=== PATIENT | female | born 1965 | race Caucasian/White ===

== ENCOUNTER 2017-03-11 08:25 | Emergency (ER) | payer BC, OTHER ==
[~2017-03-11] VITALS: Ht 170.2 cm; Wt 80.3 kg
[~2017-03-11 08:25] MED LIST: AMT10 PO; FLX10 PO; LRT5 PO; OXYC-57 PO
[2017-03-11 08:29] VITALS: TEMP 36.5; Ht 170.2 cm; Wt 80.3 kg
[2017-03-11] MEDS ORDERED: MoRPHine SULFATE 10 MG/ML CARP/VIAL IV STA (08:54)
[2017-03-11] MEDS ORDERED: SODIUM CHLORIDE 0.9% 1000ML 1,000 ML IV STA (08:54)
[2017-03-11] MEDS ORDERED: KETOROLAC TROMETHAMINE 30 MG/ML VIAL IV STA (08:54)
[2017-03-11] MEDS ORDERED: ONDANSETRON INJ 2 MG/ML 2 ML VIAL IV STA (08:54)
[2017-03-11 09:08] LABS: BASO % 0.2 %; BASO ABS # 0.02 K/uL (0-0.2); COMPLETE YES; EOS % 1.4 %; HEMATOCRIT 41.2 % (37-47); IG% 0.1 %; LYMPH % 28.1 %; LYMPH ABS # 2.27 K/uL (1.2-3.4); MEAN CELL VOLUME 88.8 fL (80-100); MEAN CORPUSCULAR HEMOGLOBIN 30.8 pg (25-34); MEAN CORPUSCULAR HGB CONC 34.7 g/dl (32-36); MEAN PLATELET VOLUME 10.2 fL (7.4-10.4); MONO % 5.1 %; NEUT % 65.1 %; PLATELET COUNT 251 K/uL (130-400); RED BLOOD COUNT 4.64 M/uL (4.2-5.4); WHITE BLOOD COUNT 8.07 K/uL (4.8-10.8)
[2017-03-11 09:24] LABS: ALT/SGPT 24 U/L (12-78); BLOOD UREA NITROGEN 10 mg/dl (7-18); BUN/CREATININE RATIO 11.3 (10-20); CALCIUM 8.9 mg/dl (8.5-10.1); CARBON DIOXIDE 23 mmol/L (21-32); CHLORIDE 107 mmol/L (98-107); CREATININE 0.91 mg/dl (0.60-1.20); GLUCOSE 89 mg/dl (70-99); POTASSIUM 3.7 mmol/L (3.5-5.1); SODIUM 140 mmol/L (136-145)
[2017-03-11 09:27] LABS: ALKALINE PHOSPHATASE 64 U/L (45-117); AST/SGOT 17 U/L (15-37)
--- NOTE | 2017-03-11 09:51 | DIAGNOSTIC IMAGING REPORT ---
ABDOMEN AND PELVIS CT WITHOUT CONTRAST CT DOSE: 1275.73 mGy.cm HISTORY: Flank pain right flank pain TECHNIQUE: Multiaxial CT images of the abdomen and pelvis were performed without the use of intravenous and oral contrast according to the standard department stone protocol. COMPARISON STUDY: 12/13/2007 FINDINGS: Lung bases are clear. Liver spleen and pancreas are unremarkable. Gallstones are present within the gallbladder lumen. Kidneys negative for calcification or hydronephrosis. Bowel pattern is nonobstructive. The appendix is normal. Uterus is bulky suggesting fibroid involvement. Bladder is midline. There is no evidence for ovarian enlargement. IMPRESSION: 1. No evidence for an obstructing urinary tract calculus. 2. Normal appendix. 3. Nonobstructive bowel pattern. 4. Gallstones. 5. Fibroid uterus. Electronically signed by: Michele Cisneros M.D. 03/11/2017 9:49 AM Dictated Date/Time: 03/11/2017 9:44 AM
[2017-03-11] MEDS ORDERED: CYCL5TAB PO (09:56)
[2017-03-11] MEDS ORDERED: AMT50 PO (09:56)
[2017-03-11] MEDS ORDERED: NAPR1TAB9 PO (09:56)
[2017-03-11 10:45] LABS: URINE APPEARANCE CLEAR (CLEAR); URINE BILIRUBIN NEG (NEG); URINE COLOR YELLOW; URINE NITRITE NEG (NEG); URINE PH 7.5 (4.5-7.5); URINE SPECIFIC GRAVITY 1.008 (1.000-1.030); UROBILINOGEN NEG (NEG); ZZUR CULT IF INDIC CLEAN CATCH NO
[2017-03-11 10:49] LABS: MANUAL MICROSCOPIC REQUIRED? NO; REVIEW REQ? NO
[2017-03-11] MEDS ORDERED: CYCL10TA6 PO (11:10)
[2017-03-11] MEDS ORDERED: HYDR-5688 PO (11:10)
--- NOTE | 2017-03-11 11:10 | EMERGENCY ROOM VISIT NOTE ---
History First contact with patient: 08:34 Chief Complaint: BACK PAIN Stated Complaint: RIGHT LOWER BACK PAIN History of Present Illness The patient is a 51 year old female who presents to the Emergency Room with complaints of right-sided low back pain for one week. She states over the past 2-1/2 days the pain has been constant and rates it at a 10 out of 10. The patient denies any nausea or vomiting. The patient denies any known injury to her back. The patient states that it hurts in her kidney region when she urinates but denies any dysuria, frequency, urgency or hematuria. The patient denies any history of kidney stones. Patient states she had a normal bowel movement this morning. The patient denies any hematochezia or melena. The patient states that she had a muscle relaxer that she had at home from a prior muscle injury which he took this morning without any relief. The patient states that she has not been eating or drinking very much. She has been taking ibuprofen and Aleve without any relief. Review of Systems 10 system review was performed and was negative unless stated otherwise history of present illness. Past Medical/Surgical History , tonsillectomy Social History Smoking Status: Never Smoker Smokeless Tobacco Use: No Alcohol Use: none Drug Use: none Marital Status: Housing Status: lives with family Occupation Status: employed Current/Historical Medications Scheduled PRN Cyclobenzaprine Hcl (Flexeril), 1 TAB PO HS PRN for Muscle Spasms Miscellaneous Medications Amitriptyline Hcl (Elavil), 50 MG PO Naproxen (Aleve), 220 MG PO Allergies Coded Allergies: Rofecoxib (Verified Allergy, Intermediate, RASH, 03/11/17) Sulfa Drugs (Verified Allergy, Intermediate, RASH, 03/11/17) Physical Exam Vital Signs Date Time Temp Pulse Resp B/P (MAP) Pulse Ox O2 Delivery O2 Flow Rate FiO2 03/11/17 09:54 74 16 114/69 100 Room Air 03/11/17 08:29 36.5 87 18 126/71 97 Room Air Physical Exam GENERAL: 51-year-old white female appears uncomfortable secondary to pain. MENTAL Status: Alert and oriented 3. EYES: No icterus noted MOUTH: Mucosa is moist NECK: Supple, no lymphadenopathy noted. No carotid bruits noted. LUNGS: Clear auscultation without wheezes rales or rhonchi. CARDIAC: Regular rate and rhythm without murmur. Pulses is full and equal throughout. BACK: No CVA tenderness noted. ABDOMEN: Positive bowel sounds all 4 quadrants. Soft, nontender to palpation without organomegaly or masses. LUMBAR SPINE: No gross bony deformity noted. The patient is nontender to palpation over the spinous processes she has tenderness palpation over the right lower paravertebral region otherwise nontender. Full range of motion. The patient is able to heel and toe walk without difficulty. Negative straight leg raise bilaterally. Bilateral patellar and Achilles reflexes are 2+. EXTREMITIES: No cyanosis or edema noted. Medical Decision & Procedures ER Provider Diagnostic Interpretation: ABDOMEN AND PELVIS CT WITHOUT CONTRAST CT DOSE: 1275.73 mGy.cm HISTORY: Flank pain right flank pain TECHNIQUE: Multiaxial CT images of the abdomen and pelvis were performed without the use of intravenous and oral contrast according to the standard department stone protocol. COMPARISON STUDY: 12/13/2007 FINDINGS: Lung bases are clear. Liver spleen and pancreas are unremarkable. Gallstones are present within the gallbladder lumen. Kidneys negative for calcification or hydronephrosis. Bowel pattern is nonobstructive. The appendix is normal. Uterus is bulky suggesting fibroid involvement. Bladder is midline. There is no evidence for ovarian enlargement. IMPRESSION: 1. No evidence for an obstructing urinary tract calculus. 2. Normal appendix. 3. Nonobstructive bowel pattern. 4. Gallstones. 5. Fibroid uterus. Electronically signed by: Michele Cisneros M.D. 03/11/2017 9:49 AM Dictated Date/Time: 03/11/2017 9:44 AM Laboratory Results 03/11/17 08:55 Red Blood Count 4.64, Mean Corpuscular Volume 88.8, Mean Corpuscular Hemoglobin 30.8, Mean Corpuscular Hemoglobin Concent 34.7, Mean Platelet Volume 10.2, Neutrophils (%) (Auto) 65.1, Lymphocytes (%) (Auto) 28.1, Monocytes (%) (Auto) 5.1, Eosinophils (%) (Auto) 1.4, Basophils (%) (Auto) 0.2, Neutrophils # (Auto) 5.25, Lymphocytes # (Auto) 2.27, Monocytes # (Auto) 0.41, Eosinophils # (Auto) 0.11, Basophils # (Auto) 0.02 03/11/17 08:55 Test 6/26/17 08:55 03/11/17 10:20 White Blood Count 8.07 K/uL (4.8-10.8) Red Blood Count 4.64 M/uL (4.2-5.4) Hemoglobin 14.3 g/dL (12.0-16.0) Hematocrit 41.2 % (37-47) Mean Corpuscular Volume 88.8 fL (80-100) Mean Corpuscular Hemoglobin 30.8 pg (25-34) Mean Corpuscular Hemoglobin Concent 34.7 g/dl (32-36) Platelet Count 251 K/uL (130-400) Mean Platelet Volume 10.2 fL (7.4-10.4) Neutrophils (%) (Auto) 65.1 % Lymphocytes (%) (Auto) 28.1 % Monocytes (%) (Auto) 5.1 % Eosinophils (%) (Auto) 1.4 % Basophils (%) (Auto) 0.2 % Neutrophils # (Auto) 5.25 K/uL (1.4-6.5) Lymphocytes # (Auto) 2.27 K/uL (1.2-3.4) Monocytes # (Auto) 0.41 K/uL (0.11-0.59) Eosinophils # (Auto) 0.11 K/uL (0-0.5) Basophils # (Auto) 0.02 K/uL (0-0.2) RDW Standard Deviation 39.6 fL (36.4-46.3) RDW Coefficient of Variation 12.3 % (11.5-14.5) Immature Granulocyte % (Auto) 0.1 % Immature Granulocyte # (Auto) 0.01 K/uL (0.00-0.02) Anion Gap 10.0 mmol/L (3-11) Est Creatinine Clear Calc Drug Dose 81.6 ml/min Estimated GFR () 85.9 Estimated GFR (Non- 74.1 BUN/Creatinine Ratio 11.3 (10-20) Calcium Level 8.9 mg/dl (8.5-10.1) Total Bilirubin 0.4 mg/dl (0.2-1) Direct Bilirubin < 0.1 mg/dl (0-0.2) Aspartate Amino Transf (AST/SGOT) 17 U/L (15-37) Alanine Aminotransferase (ALT/SGPT) 24 U/L (12-78) Alkaline Phosphatase 64 U/L (45-117) Total Protein 7.5 gm/dl (6.4-8.2) Albumin 4.0 gm/dl (3.4-5.0) Lipase 105 U/L (73-393) Urine Color YELLOW Urine Appearance CLEAR (CLEAR) Urine pH 7.5 (4.5-7.5) Urine Specific [place] 1.008 (1.000-1.030) Urine Protein NEG (NEG) Urine Glucose (UA) NEG (NEG) Urine Ketones NEG (NEG) Urine Occult Blood NEG (NEG) Urine Nitrite NEG (NEG) Urine Bilirubin NEG (NEG) Urine Urobilinogen NEG (NEG) Urine Leukocyte Esterase NEG (NEG) Medications Administered Medications (Trade) Dose Ordered Sig/Елена Route Start Time Stop Time Status Last Admin Dose Admin Sodium Chloride 1,000 ml @ 999 mls/hr Q1H1M STAT IV 03/11/17 08:54 03/11/17 09:54 DC 03/11/17 09:07 999 MLS/HR Ketorolac Tromethamine (Toradol Inj) 30 mg NOW STAT IV 03/11/17 08:54 03/11/17 08:57 DC 03/11/17 09:06 30 MG Ondansetron HCl (Zofran Inj) 4 mg NOW STAT IV 03/11/17 08:54 03/11/17 08:57 DC 03/11/17 09:06 4 MG Morphine Sulfate (MoRPHine SULFATE INJ) 6 mg NOW STAT IV 03/11/17 08:54 03/11/17 08:57 DC 03/11/17 09:50 6 MG ED Course The patient was evaluated. The patient's EMR and medication list were reviewed. IV access was obtained. The patient was given 1 L normal saline wide -open. The patient was also given Toradol 30 mg IV, morphine 6 mg IV and Zofran 4 mg IV for pain and nausea. CBC and differential, renal profile, LFTs and lipase levels were ordered. Urinalysis was ordered. CT stone study was ordered and interpreted by the radiologist and myself as above without any acute findings. Labs are reviewed and were unremarkable. The patient was informed of the findings. The patient was reevaluated and had just received her morphine therefore she was still in significant pain. Urine analysis was negative. The patient was reevaluated was feeling much better. The patient was discharged home in stable condition. Medical Decision Differential diagnosis include UTI, ureteral calculi, lumbar muscular strain, sciatica Impression Primary Impression: Strain of lumbar region Departure Information Dispostion Home / Self-Care Condition GOOD Prescriptions Hydrocodone/Acetaminophen 5MG/325MG ([place] 5MG/325MG) Tab 1-2 TABLET PO Q6 Y for Pain, #20 TAB For Initial Treatment Prov: Shanika Cisneros PA-C 03/11/17 Cyclobenzaprine Hcl (FLEXERIL) 10 Mg Tab 10 MG PO TID for 7 Days, #21 TAB Prov: Shanika Cisneros PA-C 03/11/17 Referrals Zia Johnson III, M.D. (PCP) Forms HOME CARE DOCUMENTATION FORM, IMPORTANT VISIT INFORMATION Patient Instructions [facility] Additional Instructions DISCHARGE INSTRUCTIONS AND TREATMENT: Ibuprofen 600 mg every 6 hours with food for pain. Rx is given for [place] 5/325 mg. 1-2 tablets every 6 hours as needed for more severe pain. Dispense [address] taking the [place]. Patient was also given Rx for Flexeril 10 mg. One tablet p.o. every 8 hours for muscle spasms. Dispense [address] taking the Flexeril. Avoid staying in any one position for an extended period of time. If symptoms persist or worsen, follow up with your family doctor for referral for additional testing. Problem Qualifiers Primary Impression: Strain of lumbar region Encounter type: initial encounter Qualified Codes: S39.012A - Strain of muscle, fascia and tendon of lower back, initial encounter
[2017-03-11 11:31] VITALS: BP 140/73; PULSE 83; O2SAT 97
== END 2017-03-11 11:30 | disposition home or self-care (01) ==
LOC: C.EDB 08:27 → C.EDA 11:30
DX: S39.012A Strain of muscle, fascia and tendon of lower back, initial encounter (principal); X58.XXXA Exposure to other specified factors, initial encounter; Z98.891 History of uterine scar from previous surgery; Z90.89 Acquired absence of other organs

== ENCOUNTER 2018-10-03 12:17 | Inpatient (IN) ==
[2018-10-03] MEDS ORDERED: SODIUM CHLORIDE 0.9% 1000ML 1,000 ML IV SCH (13:45)
[2018-10-03 14:00] LABS: Basophils # (auto) 0.02 K/uL (0-0.2); Basophils % (auto) 0.3 %; Eosinophils # (auto) 0.11 K/uL (0-0.5); Eosinophils % (auto) 1.7 %; Hematocrit (blood only) 39.2 % (37-47); Hemoglobin 13.8 g/dL (12.0-16.0); Immature Granulocytes # (auto) 0.01 K/uL (0.00-0.02); Immature Granulocytes % (auto) 0.2 %; Lymphocytes # (auto) 2.11 K/uL (1.2-3.4); Lymphocytes % (auto) 33.4 %; Mean Corpuscular Hgb Conc 35.2 g/dL (32-36); Mean Corpuscular Volume 89.5 fL (80-100); Mean Platelet Volume 10.4 fL (7.4-10.4); Monocytes # (auto) 0.38 K/uL (0.11-0.59); Neutrophils # (auto) 3.69 K/uL (1.4-6.5); Neutrophils % (auto) 58.4 %; Platelet Count 270 K/uL (130-400); RDW Coefficient of Variation 12.9 % (11.5-14.5); RDW Standard Deviation 42.1 fL (36.4-46.3); Red Blood Count 4.38 M/uL (4.2-5.4); White Blood Count 6.32 K/uL (4.8-10.8)
[2018-10-03 14:20] LABS: Albumin Globulin Ratio 1.2 (0.9-2); Albumin Level 4.2 gm/dl (3.4-5.0); BUN Creatinine Ratio 16.5 (10-20); Bilirubin,Total 0.5 mg/dl (0.2-1); Calcium 9.7 mg/dl (8.5-10.1); Creatinine Clr Calc Pharmacy 73.4 ml/min; Est GFR (African American) 81.4; Est GFR (Non-African American) 70.2; Globulin 3.4 gm/dl (2.5-4.0); Potassium 3.8 mmol/L (3.5-5.1); Total Protein 7.6 gm/dl (6.4-8.2)
[2018-10-03] MEDS ORDERED: MoRPHine SULFATE 4 MG/ML 1 ML CARP\\VIAL IV STA (14:46)
[2018-10-03] MEDS ORDERED: ONDANSETRON INJ 2 MG/ML 2 ML VIAL IV STA (14:46)
[2018-10-03 15:18] LABS: Appearance Urine Clear (Clear); Bilirubin Urine Negative (Negative); Color Urine Yellow; Glucose Urine UA Negative (Negative); Ketones Urine Negative (Negative); Leukocyte Esterase Urine Negative (Negative); Nitrite Urine Negative (Negative); Protein Urine Negative (Negative); Urobilinogen Urine Negative (Negative); pH Urine 7.5 (4.5-7.5)
--- NOTE | 2018-10-03 15:33 | History & Physical Report ---
Date of Service October 03, 2018 Assessment & Plan (1) Acute cholecystitis due to biliary calculus: for laparoscopic cholecystectomy, possible open operation IV atbx (2) Acute cholecystitis: History of Present Illness Chief Complaint: RUQ abd pain with radiation to back Primary Care Provider: Zia Johnson 4-5 days abd pain- RUQ w/ rad to back U/s - stone in neck of gb, probable cholecystitis Allergies Allergy/AdvReac Type Severity Reaction Status Date / Time rofecoxib Allergy Intermediate RASH Verified 03/11/17 09:58 Sulfa (Sulfonamide Allergy Intermediate RASH Verified 03/11/17 09:58 Antibiotics) Home Medications Home Medications Medication Instructions Recorded Confirmed Type amitriptyline 10 mg PO HS 10/03/18 10/03/18 History cyclobenzaprine 10 mg PO TID PRN 10/03/18 10/03/18 History tramadol 50 mg PO UD PRN 10/03/18 10/03/18 History valacyclovir [Valtrex] 0 mg PO UD PRN 10/03/18 10/03/18 History Past Med/Surg History Medical History No significant medical problems Family History Other Diabetes HTN (hypertension) Social History marital status: Current Living Situation: Spouse Feels Safe at Home: Yes Smoking Status: Never smoker Physical Exam 2 Vital Signs (Past 24 Hours): Last Vital Signs Temp 36.5 C 10/03/18 12:35 Pulse 87 10/03/18 14:28 Resp 16 10/03/18 14:28 BP 114/69 10/03/18 14:28 Pulse Ox 97 10/03/18 14:28 Constitutional: well developed and well nourished Eyes: no scleral abnormality and sclerae not anicteric Respiratory: no respiratory distress and no labored breathing Cardiovascular: Rate/Rhythm: regular rate and regular rhythm Gastrointestinal (Abdomen): Percussion/Palpation: abdomen soft Skin: no rashes, warm and dry Psychiatric: Judgement: good judgement
--- NOTE | 2018-10-03 15:45 | Anesthesiology Consultation ---
Date of Service October 03, 2018 Assessment & Plan (1) Encounter for pre-operative examination: Chart Review Chart Review: Acceptable Risk for Surgery and Patient NOT seen in Pre Admission Testing Consults Requested none ASA ASA2 Proposed Anesthesia Anesthesia Type: General Risk / Benefits Reviewed With: PT / POA / Parent / Guardian, Accepts Plan and Informed Consent Obtained NPO Date Last Intake of Fluids: 10/02/18 Time Last Intake of Fluids: 20:00 Date Last Intake of Solids: 10/02/18 Time Last Intake of Solids: 20:00 History Surgery Operation Date: 10/03/18 10:35 Proposed Procedures p Laparoscopic Cholecystectomy - Cristi Cleary MD, FACS Height/Weight Height: 1.63 m Weight: 82.1 kg Allergies Allergy/AdvReac Type Severity Reaction Status Date / Time rofecoxib Allergy Intermediate RASH Verified 03/11/17 09:58 Sulfa (Sulfonamide Allergy Intermediate RASH Verified 03/11/17 09:58 Antibiotics) Medications Home Medications Medication Instructions Recorded Confirmed Last Taken amitriptyline 10 mg PO HS 10/03/18 10/03/18 Unknown cyclobenzaprine 10 mg PO TID PRN 10/03/18 10/03/18 Unknown tramadol 50 mg PO UD PRN 10/03/18 10/03/18 Unknown valacyclovir [Valtrex] 0 mg PO UD PRN 10/03/18 10/03/18 Unknown Past Medical History Medical History Acute cholecystitis due to biliary calculus No significant medical problems Scoliosis Past Family History Family History Other Diabetes HTN (hypertension) Past Surgical History Surgical History History of bilateral tubal ligation History of conization of cervix Previous section Past Anesthesia History No Hx of Anesthesia Complications and No Family Hx of Anesthesia Complications History of PONV No Motion Sickness Screening History of Motion Sickness: No Social History Smoking Status: Never smoker Do You Dip or Chew Tobacco: No Hx Alcohol Use: Yes Alcohol type: wine alcohol intake frequency: holidays/special occasions only Hx Substance Use: No Exercise / Class Metabolic Activity II 4-5 Yardwork/Stairs/Walk up hill Physical Exam Vital Signs Last Vital Signs Temp 36.5 C 10/03/18 12:35 Pulse 81 10/03/18 15:45 Resp 20 10/03/18 15:53 BP 130/81 10/03/18 15:45 Pulse Ox 100 10/03/18 15:53 Constitutional + obese ENMT Mouth: no TMJ abnormality and no TMJ clicking Thyromental Distance: > or= 3.5 Finger Breadths Mallampati Class: II Mouth / Teeth: 2 1. Missing 2. Missing Neck neck extension not limited Respiratory Auscultation: lungs clear to auscultation bilaterally Cardiovascular Rate/Rhythm: regular rate and regular rhythm Psychiatric Orientation: alert and oriented x 3 Testing Laboratory Results 10/03/18 13:00 10/03/18 13:00 Urine Color Yellow 10/03/18 15:00 Urine Appearance Clear (Clear) 10/03/18 15:00 Urine pH 7.5 (4.5-7.5) 10/03/18 15:00 Ur Specific [place] 1.010 (1.000-1.030) 10/03/18 15:00 Urine Protein Negative (Negative) 10/03/18 15:00 Urine Glucose (UA) Negative (Negative) 10/03/18 15:00 Urine Ketones Negative (Negative) 10/03/18 15:00 Urine Nitrite Negative (Negative) 10/03/18 15:00 Ur Leukocyte Esterase Negative (Negative) 10/03/18 15:00 10/03/18 15:00 POC Ur Test NEG
[2018-10-03] MEDS ORDERED: MIDAZOLAM HCL 1 MG/ML 2ML VIAL ONE (15:50)
[2018-10-03] MEDS ORDERED: ROCURONIUM BROMIDE 10 MG/ML 5 ML VIAL ONE ×2 (15:50→16:47)
[2018-10-03] MEDS ORDERED: ONDANSETRON INJ 2 MG/ML 2 ML VIAL ONE (15:50)
[2018-10-03] MEDS ORDERED: PROPOFOL IV EMULSION 10 MG/ML 20 ML VIAL IV ONE (15:50)
[2018-10-03] MEDS ORDERED: GLYCOPYRROLATE 0.2 MG/ML VIAL ONE ×2 (15:50→17:32)
[2018-10-03] MEDS ORDERED: SUCCINYLCHOLINE CHLORIDE 20 MG/ML 10 ML VIAL ONE (15:50)
[2018-10-03] MEDS ORDERED: LIDOCAINE HCL 2% 2 ML VIAL/AMP(20MG/ML) INFIL ONE (15:50)
[2018-10-03] MEDS ORDERED: fentaNYL citrate 100 MCG/2 ML VIAL ONE ×2 (15:50→16:30)
[2018-10-03] MEDS ORDERED: NEOSTIGMINE METHYLSULFATE 5 MG/5 ML SYR ONE (15:50)
[2018-10-03] MEDS ORDERED: DEXAMETHASONE SOD INJ 4 MG/ML VIAL ONE ×2 (15:50→16:47)
[2018-10-03] MEDS ORDERED: ePHEDrine sulfate 50 MG/ML AMP IV PRN (15:57)
[2018-10-03] MEDS ORDERED: PROMETHAZINE HCL 12.5 MG in SODIUM CHLORIDE 0.9% 50 ML IV PRN ×2 (15:57→17:43)
[2018-10-03] MEDS ORDERED: ONDANSETRON INJ 2 MG/ML 2 ML VIAL IV PRN ×2 (15:57→17:43)
[2018-10-03] MEDS ORDERED: PHENYLEPHRINE 100MCG/ML 5ML SYR IV PRN (15:57)
[2018-10-03] MEDS ORDERED: ATROPINE SULFATE 0.1 MG/ML 10ML SYR IV PRN (15:57)
[2018-10-03] MEDS ORDERED: BUPIVACAINE 0.5 % 5 MG/1 ML MPF 30ML VIAL ONE (16:03)
[2018-10-03] MEDS ORDERED: AMPICILLIN/SULBACTAM SOD 1,500 MG in 0.9 % SODIUM CHLORIDE 100 ML IV ONE (16:15)
[2018-10-03] MEDS: AMPICILLIN/SULBACTAM SOD 1,500 MG in 0.9 % SODIUM CHLORIDE 100 ML IV SCH ×2 (16:24→22:11)
[2018-10-03] MEDS ORDERED: LARYING-O-JET KIT (LTA) ONE (16:47)
[2018-10-03] MEDS ORDERED: KETOROLAC 30 MG/ML VIAL ONE (17:36)
[2018-10-03] MEDS ORDERED: ACETAMINOPHEN 1,000 MG/100 ML VIAL IV ONE (17:38)
--- NOTE | 2018-10-03 17:38 | Operative Report ---
Post Operative Report Pre & Post Diagnosis Operation Date: 10/03/18 10:35 Pre-Op Diagnosis: acute and chronic cholecystitis Post-Op Diagnosis: acute and chronic cholecystitis same Procedure Operation Date: 10/03/18 10:35 Actual Procedures p Laparoscopic Cholecystectomy(Not Applicable) - Cristi Cleary MD, FACS same Surgeon Cristi Cleary MD, FACS Package Designer nurses Estimated Blood Loss 20 Findings Consistent with Post-Op Diagnosis Specimens gallbladder Description of Procedure see dictated note I attest to the content of the Intraoperative Record and any orders documented therein. Any exceptions are noted below.
[2018-10-03] MEDS ORDERED: MoRPHine SULFATE 2 MG/ML CARP IV PRN (17:43)
[2018-10-03] MEDS ORDERED: MoRPHine SULFATE 4 MG/ML 1 ML CARP\\VIAL IV PRN (17:43)
[2018-10-03] MEDS ORDERED: HYDROCODONE/ACETAMOPHEN 5/325MG TAB PO PRN (17:43)
[2018-10-03] MEDS: fentaNYL citrate 100 MCG/2 ML VIAL IV PRN ×4 (17:57→18:15)
[2018-10-03] MEDS: HYDROmorphone INJ 1 MG/ML SYRINGE IV PRN ×2 (18:22→18:28)
--- NOTE | 2018-10-03 18:23 | Anesthesiology Progress Note ---
Date of Service October 03, 2018 Anesthesia Post Procedure Vital Signs Vital Signs: Temp Pulse Pulse Pulse Resp BP BP 10/03/18 17:50 36.8 C 94 H 15 95/75 L 10/03/18 16:07 36.6 C 85 18 140/93 10/03/18 15:53 20 10/03/18 15:45 81 20 130/81 10/03/18 14:28 87 16 114/69 10/03/18 12:35 36.5 C 85 18 132/71 Pulse Ox 10/03/18 17:50 100 10/03/18 16:07 95 10/03/18 15:53 100 10/03/18 15:45 100 10/03/18 14:28 97 10/03/18 12:35 99 Pain Intensity Abdomen: Pain Intensity: 9 Notes Mental Status: alert / awake / arousable and participated in evaluation Patient Amnestic to Procedure: Yes Nausea / Vomiting: adequately controlled Pain: adequately controlled Airway Patency, RR, SpO2: stable & adequate BP & HR: stable & adequate Hydration State: stable & adequate Anesthetic Complications: no major complications apparent and Pt Satisfied with anesthetic care
--- NOTE | 2018-10-03 19:55 | Emergency Department Note ---
Entered by Kahlil Sanchez acting as a scribe for History of Present Illness General Chief complaint: Flank Pain Stated complaint: GALLBLADDER BLOCKAGE Source: patient Limitations: no limitations History of Present Illness Provider complaint: Right abdominal pain Onset (ago): week(s) Location: abdomen and right Pain Consistency: + other (worsening) Maximum Pain Intensity: 7 Quality: + sharp Associated symptoms: + fever/chills and + other ("sweats" ); no nausea/vomiting Treatments prior to arrival: other (CT and ultra sound) The patient is a 53 year old female who presents to the Emergency Room with complaints of worsening abdominal pain that began about 1 week ago. The patient states that she first developed abdominal pain 1 week ago, which significantly worsened 2 days ago. She notes that the pain is localized to the right sided and she describes the sensation as "sharp." She has not been eating or drinking much recently and is unsure if eating worsens the pain. The patient has felt subjectively feverish and adds that she has "broken out into sweats" but has not recorded any febrile temperatures. She also denies any vomiting or diarrhea. The patient was evaluated by her primary care physician at [facility] who ordered an outpatient CT scan and Ultra Sound. The CT was performed two days ago and the ultra sound was performed today shortly prior to arrival. The ultra sound today showed a gallstone blocking the duct and the gallbladder itself was swollen. She denies having anything to eat or drink since last night. Home Medications Home Medications Medication Instructions Recorded Confirmed Type amitriptyline 10 mg PO HS 10/03/18 10/03/18 History cyclobenzaprine 10 mg PO TID PRN 10/03/18 10/03/18 History tramadol 50 mg PO UD PRN 10/03/18 10/03/18 History valacyclovir [Valtrex] 0 mg PO UD PRN 10/03/18 10/03/18 History Allergies Allergy/AdvReac Type Severity Reaction Status Date / Time rofecoxib Allergy Intermediate RASH Verified 03/11/17 09:58 Sulfa (Sulfonamide Allergy Intermediate RASH Verified 03/11/17 09:58 Antibiotics) Past Med/Surg History Medical History Acute cholecystitis due to biliary calculus No significant medical problems Scoliosis Surgical History History of bilateral tubal ligation History of conization of cervix Previous section Family History Other Diabetes HTN (hypertension) Social History marital status: Current Living Situation: Alone Other Information That Helps Us Care for You: No Feels Safe at Home: Yes Safety Concerns: Feels Safe At This Time Smoking Status: Never smoker Do You Dip or Chew Tobacco: No Hx Alcohol Use: Yes Alcohol type: wine Alcohol Intake Frequency: holidays/ special occasions only Hx Substance Use: No Beliefs That Will Affect Care: None Review of Systems See HPI for pertinent positives & negatives. and A total of 10 systems reviewed and were otherwise negative Physical Exam Vital Signs Vital Signs - 24 hr 10/03/18 12:35 10/03/18 14:28 10/03/18 15:45 Temperature 36.5 C Temperature Source Oral Sepsis Recent Fever Within 48 Hours No Sepsis New/Unexplained Change in Mental Status No Sepsis Action Taken by Nursing No Action Required Pulse Rate 85 Pulse Rate [Apical] Pulse Rate [Finger] 87 81 Pulse Rhythm [Apical] Pulse Rhythm [Finger] Pulse Strength [Finger] Respiratory Rate 18 16 20 Respiratory Effort / Characteristics Respiratory Depth Normal Respiratory Pattern Blood Pressure 132/71 Blood Pressure [Left Arm] 114/69 130/81 Blood Pressure Mean 91 Blood Pressure Mean [Left Arm] 84 97 Blood Pressure Position [Left Arm] Pulse Oximetry 99 97 100 Oxygen Delivery Method Room Air Room Air Room Air Oxygen Flow Rate 10/03/18 15:53 10/03/18 16:07 10/03/18 17:50 Temperature 36.6 C 36.8 C Temperature Source Oral Temporal Artery Scan Sepsis Recent Fever Within 48 Hours Sepsis New/Unexplained Change in Mental Status Sepsis Action Taken by Nursing Pulse Rate Pulse Rate [Apical] 94 H Pulse Rate [Finger] 85 Pulse Rhythm [Apical] Regular Pulse Rhythm [Finger] Regular Pulse Strength [Finger] Normal Respiratory Rate 20 18 15 Respiratory Effort / Characteristics Non-Labored Spontaneous Non-Labored Spontaneous Respiratory Depth Normal Normal Respiratory Pattern Regular Regular Blood Pressure Blood Pressure [Left Arm] 140/93 95/75 L Blood Pressure Mean Blood Pressure Mean [Left Arm] 108 81 Blood Pressure Position [Left Arm] Semi-fowlers Lying Pulse Oximetry 100 95 100 Oxygen Delivery Method Room Air Room Air Oxymask Oxygen Flow Rate 10 10/03/18 18:00 10/03/18 18:10 10/03/18 18:20 Temperature Temperature Source Temporal Artery Scan Temporal Artery Scan Temporal Artery Scan Sepsis Recent Fever Within 48 Hours Sepsis New/Unexplained Change in Mental Status Sepsis Action Taken by Nursing Pulse Rate Pulse Rate [Apical] 84 91 H 77 Pulse Rate [Finger] Pulse Rhythm [Apical] Regular Regular Regular Pulse Rhythm [Finger] Pulse Strength [Finger] Respiratory Rate 15 16 16 Respiratory Effort / Characteristics Non-Labored Spontaneous Non-Labored Spontaneous Non-Labored Spontaneous Respiratory Depth Normal Normal Normal Respiratory Pattern Regular Regular Regular Blood Pressure Blood Pressure [Left Arm] 124/74 133/67 119/80 Blood Pressure Mean Blood Pressure Mean [Left Arm] 90 89 93 Blood Pressure Position [Left Arm] Lying Lying Lying Pulse Oximetry 100 100 100 Oxygen Delivery Method Oxymask Oxymask Nasal Cannula Oxygen Flow Rate 10 10 2 10/03/18 18:30 10/03/18 18:40 Temperature 36.2 C L Temperature Source Temporal Artery Scan Temporal Artery Scan Sepsis Recent Fever Within 48 Hours Sepsis New/Unexplained Change in Mental Status Sepsis Action Taken by Nursing Pulse Rate Pulse Rate [Apical] 86 85 Pulse Rate [Finger] Pulse Rhythm [Apical] Regular Regular Pulse Rhythm [Finger] Pulse Strength [Finger] Respiratory Rate 12 20 Respiratory Effort / Characteristics Non-Labored Spontaneous Non-Labored Spontaneous Respiratory Depth Normal Normal Respiratory Pattern Regular Regular Blood Pressure Blood Pressure [Left Arm] 116/81 130/77 Blood Pressure Mean Blood Pressure Mean [Left Arm] 92 94 Blood Pressure Position [Left Arm] Lying Lying Pulse Oximetry 99 98 Oxygen Delivery Method Nasal Cannula Nasal Cannula Oxygen Flow Rate 2 2 Constitutional: Vital signs reviewed. Eyes: Pupils are equal round reactive to light. Conjunctiva are noninjected. ENT: Pharynx is clear without erythema or exudate. Mucous membranes are moist. Neck supple without meningeal signs. Respiratory: Clear to auscultation bilaterally. Breath sounds are equal bilaterally. Cardiovascular: Regular rate and rhythm. No rubs or gallops. GI: Soft, nondistended with tenderness in the RUQ. No Beckett's tenderness. Bowel sounds are present. Musculoskeletal: No peripheral edema. No lower extremity tenderness. Integumentary: No cyanosis. Neurological: The patient is awake and alert. No focal deficits. Psychiatric: Normal affect. Course 1335: Past medical records reviewed. The patient was evaluated in room B3, and a complete history and physical examination were performed. 1501: I discussed the case with Dr. Evin Gambino. He will come to see the patient. 1505: I checked on the patient she is feeling better after morphine. 1535: Dr. Cleary will take the patient to the OR. Consultations Consultation #1: 1501: I discussed the case with Dr. Evin Gambino. He will come to see the patient. Administered Medications Ampicillin Sodium/Sulbactam Sodium 1,500 mg/ Sodium Chloride 104 mls @ 200 mls/ hr IV Q6H CHONG; Protocol Stop: 10/13/18 21:59 Last Infusion: 10/03/18 19:21 Dose: 0 mls/hr Admin: 10/03/18 16:24 Dose: 200 mls/hr Discontinued Medications Bupivacaine HCl (Marcaine 0.5% Mpf) Confirm Administered Dose 30 ml .ROUTE .STK- MED ONE Stop: 10/03/18 16:04 Last Admin: 10/03/18 17:32 Dose: 20 ml Fentanyl Citrate (Fentanyl Citrate) 25 mcg IV Q5M PRN PRN Reason: PACU Use Only-Pain Stop: 10/03/18 20:57 Last Admin: 10/03/18 18:15 Dose: 25 mcg Admin: 10/03/18 18:10 Dose: 25 mcg Admin: 10/03/18 18:05 Dose: 25 mcg Admin: 10/03/18 17:57 Dose: 25 mcg Hydromorphone HCl (Dilaudid) 0.25 mg IV Q5M PRN PRN Reason: PACU Use Only-Pain Stop: 10/03/18 20:57 Last Admin: 10/03/18 18:28 Dose: 0.25 mg Admin: 10/03/18 18:22 Dose: 0.25 mg Sodium Chloride (Nss 1000ml) 1,000 mls @ 999 mls/hr IV .Q1H1M CHONG Stop: 10/03/18 14:45 Last Infusion: 10/03/18 14:50 Dose: 0 mls/hr Admin: 10/03/18 13:57 Dose: 999 mls/hr Ampicillin Sodium/Sulbactam Sodium 1,500 mg/ Sodium Chloride 104 mls @ 200 mls/ hr IV 1615 ONE Stop: 10/03/18 16:46 Last Admin: 10/03/18 19:22 Dose: Not Given Morphine Sulfate (Morphine Sulfate) 4 mg IV NOW STA Stop: 10/03/18 14:47 Last Admin: 10/03/18 14:57 Dose: 4 mg Ondansetron HCl (Zofran) 4 mg IV NOW STA Stop: 10/03/18 14:47 Last Admin: 10/03/18 14:57 Dose: 4 mg Medical Decision Making Differential Diagnosis Differential Diagnosis includes: Cholecystitis, cholelithiasis, pancreatitis, choledocolithiasis, duodenitis. Medical Records Attestation: I reviewed the patient's medical records. Home Medications Current Medication List: was personally reviewed by me Laboratory Data Attestation: I reviewed the patient's lab results. Result diagrams: 10/03/18 13:00 10/03/18 13:00 Lab Results 10/03/18 10/03/18 10/03/18 Range/Units 13:00 13:00 15:00 WBC 6.32 (4.8-10.8) K/uL RBC 4.38 (4.2-5.4) M/uL Hgb 13.8 (12.0-16.0) g/dL Hct 39.2 (37-47) % MCV 89.5 (80-100) fL MCH 31.5 (25-34) pg MCHC 35.2 (32-36) g/dL RDW Std Deviation 42.1 (36.4-46.3) fL RDW Coeff of Hedy 12.9 (11.5-14.5) % Plt Count 270 (130-400) K/uL MPV 10.4 (7.4-10.4) fL Immature Gran % (Auto) 0.2 % Neut % (Auto) 58.4 % Lymph % (Auto) 33.4 % Pine % (Auto) 6.0 % Eos % (Auto) 1.7 % Baso % (Auto) 0.3 % Immature Gran # (Auto) 0.01 (0.00-0.02) K/uL Neut # (Auto) 3.69 (1.4-6.5) K/uL Lymph # (Auto) 2.11 (1.2-3.4) K/uL Pine # (Auto) 0.38 (0.11-0.59) K/uL Eos # (Auto) 0.11 (0-0.5) K/uL Baso # (Auto) 0.02 (0-0.2) K/uL Sodium 140 (136-145) mmol/L Potassium 3.8 (3.5-5.1) mmol/L Chloride 108 H (98-107) mmol/L Carbon Dioxide 23 (21-32) mmol/L Anion Gap 9.0 (3-11) BUN 16 (7-18) mg/dl Creatinine 0.94 (0.6-1.2) mg/dl Est Cr Clr Drug Dosing 73.4 ml/min Est GFR ( Amer) 81.4 Est GFR (Non-Af Amer) 70.2 BUN/Creatinine Ratio 16.5 (10-20) Glucose 89 (70-99) mg/dl Calcium 9.7 (8.5-10.1) mg/dl Total Bilirubin 0.5 (0.2-1) mg/dl AST 23 (15-37) U/L ALT 41 (12-78) U/L Alkaline Phosphatase 64 (45-117) U/L Total Protein 7.6 (6.4-8.2) gm/dl Albumin 4.2 (3.4-5.0) gm/dl Globulin 3.4 (2.5-4.0) gm/dl Albumin/Globulin Ratio 1.2 (0.9-2) Lipase 78 (73-393) U/L Specimen Hemolysis Urine Color Urine Appearance (Clear) Urine pH (4.5-7.5) Ur Specific [place] (1.000-1.030) Urine Protein (Negative) Urine Glucose (UA) (Negative) Urine Ketones (Negative) Urine Blood (Negative) Urine Nitrite (Negative) Urine Bilirubin (Negative) Urine Urobilinogen (Negative) Ur Leukocyte Esterase (Negative) POC Ur Test NEG (NEG) 10/03/18 Range/Units 15:00 WBC (4.8-10.8) K/uL RBC (4.2-5.4) M/uL Hgb (12.0-16.0) g/dL Hct (37-47) % MCV (80-100) fL MCH (25-34) pg MCHC (32-36) g/dL RDW Std Deviation (36.4-46.3) fL RDW Coeff of Hedy (11.5-14.5) % Plt Count (130-400) K/uL MPV (7.4-10.4) fL Immature Gran % (Auto) % Neut % (Auto) % Lymph % (Auto) % Pine % (Auto) % Eos % (Auto) % Baso % (Auto) % Immature Gran # (Auto) (0.00-0.02) K/uL Neut # (Auto) (1.4-6.5) K/uL Lymph # (Auto) (1.2-3.4) K/uL Pine # (Auto) (0.11-0.59) K/uL Eos # (Auto) (0-0.5) K/uL Baso # (Auto) (0-0.2) K/uL Sodium (136-145) mmol/L Potassium (3.5-5.1) mmol/L Chloride (98-107) mmol/L Carbon Dioxide (21-32) mmol/L Anion Gap (3-11) BUN (7-18) mg/dl Creatinine (0.6-1.2) mg/dl Est Cr Clr Drug Dosing ml/min Est GFR ( Amer) Est GFR (Non-Af Amer) BUN/Creatinine Ratio (10-20) Glucose (70-99) mg/dl Calcium (8.5-10.1) mg/dl Total Bilirubin (0.2-1) mg/dl AST (15-37) U/L ALT (12-78) U/L Alkaline Phosphatase (45-117) U/L Total Protein (6.4-8.2) gm/dl Albumin (3.4-5.0) gm/dl Globulin (2.5-4.0) gm/dl Albumin/Globulin Ratio (0.9-2) Lipase (73-393) U/L Specimen Hemolysis Urine Color Yellow Urine Appearance Clear (Clear) Urine pH 7.5 (4.5-7.5) Ur Specific [place] 1.010 (1.000-1.030) Urine Protein Negative (Negative) Urine Glucose (UA) Negative (Negative) Urine Ketones Negative (Negative) Urine Blood Negative (Negative) Urine Nitrite Negative (Negative) Urine Bilirubin Negative (Negative) Urine Urobilinogen Negative (Negative) Ur Leukocyte Esterase Negative (Negative) POC Ur Test (NEG) Imaging Data Radiologist's Impression: The outpatient Ultra Sound report was obtained and shows: Distended gallbladder with a 1.45 cm non-mobile stone in the neck. the CBD was 6 mm. Blood Pressure Blood Pressure Findings: Elevated blood pressure Blood Pressure Disposition: elevated BP felt to be situational MDM Narrative I did perform a limited focused review of portions of the patient's old chart on the electronic medical record. The patient has had no recent pertinent visits to this hospital. The outpatient Ultra Sound report was obtained and shows: Distended gallbladder with a 1.45 cm non-mobile stone in the neck. the CBD was 6 mm. I did evaluate the patient as noted above. The patient is presenting with right upper quadrant pain. She had an ultrasound today which was concerning for acute cholecystitis. IV access was established. I did order and review the patient's blood work as noted in the electronic medical record. Her white blood cell count is not elevated. LFTs and lipase are unremarkable. Urinalysis was obtained and is unremarkable. I did treat the patient with IV morphine and Zofran. She did feel better after this. I did discuss the case with Dr. Cleary of surgery who evaluated the patient in the ED and took her to the OR for cholecystectomy. Impression & Plan Cholecystitis Discharge Plan Visit Data *Final* Discharge Date/Time: 10/03/18 15:53 Chief Complaint: Flank Pain Stated Complaint: GALLBLADDER BLOCKAGE ED Provider: Mario Hou Discharge Problem: Cholecystitis Patient Disposition: Being Evaluated by Surgeon Discharge Instructions Interventions: ED Discharge Assessment Last Done: 10/03/18 15:53 The scribe's documentation has been prepared under my direction and personally reviewed by me in its entirety. I confirm that the note above accurately reflects all work, treatment, procedures, and medical decision making performed by me.
[2018-10-03] MEDS: HYDROCODONE/ACETAMOPHEN 5/325MG TAB PO PRN (20:04)
[2018-10-03] MEDS: AMITRIPTYLINE HCL 10 MG TAB PO SCH (20:04)
--- NOTE | 2018-10-03 21:49 | Operative Report ---
DATE OF OPERATION: 10/03/2018 NAME OF OPERATION: Laparoscopic cholecystectomy. PREOPERATIVE DIAGNOSIS: Acute cholecystitis. POSTOPERATIVE DIAGNOSIS: Same with chronic cholecystitis and hydrops of the gallbladder. STAFF SURGEON: Cristi Cleary MD ANESTHESIA: General. DESCRIPTION OF PROCEDURE: The patient was brought in the operating room and placed on the operating table in supine position. Her abdomen was prepped and draped in the usual fashion. Pneumatic stockings and orogastric tube were placed. Initially, incision was made just below the umbilicus, carrying dissection down, placing a Veress needle producing pneumoperitoneum. An 11-mm port was placed at this level. Then under visualization, three 5-mm ports were placed, 1 cephalad and 2 laterally. The patient was placed in reverse Trendelenburg position, rotated to the left. The gallbladder was very distended. It was aspirated of bile which appeared to be clear, indicating hydrops. Dissection was carried out at the angle hepatis. The patient did have a stone near the neck of the gallbladder with evidence of chronic inflammation consistent with acute and chronic cholecystitis. I maintained dissection on the edge of the gallbladder, identifying the cystic artery which was clipped and transected. Then the cystic duct which was very short was also identified as well as the common bile duct. I was able to clip the cystic duct next to the gallbladder and then transect it. The gallbladder was then dissected away from the liver bed in the usual fashion. There was scar tissue indicating chronic inflammation. Gallbladder was placed in an Endobag. Because of the chronic inflammation and acute nature, I felt that drain placement would be appropriate. A 15 round Edwin-Perez drain was placed through the lateral 5-mm port site into the subhepatic space, secured using 3-0 nylon suture. After appropriate hemostasis and irrigation, the gallbladder was placed into the Endobag. The Endobag was removed via the umbilical site using a 5 mm scope. I did have to enlarge the fascial defect to remove the stones. The fascia at the umbilicus was closed using interrupted 0 Vicryl suture and the skin reapproximated at all levels using 5-0 Prolene suture. The drain was placed to suction bulb and patient transferred to recovery room in stable condition. I attest to the content of the Intraoperative Record and any orders documented therein. Any exception s are noted below.
[2018-10-03] MEDS: SODIUM CHLORIDE 0.9% 1000ML 1,000 ML IV SCH (22:12)
[2018-10-04] MEDS: HYDROCODONE/ACETAMOPHEN 5/325MG TAB PO PRN ×4 (00:26→22:02)
[2018-10-04] MEDS: AMPICILLIN/SULBACTAM SOD 1,500 MG in 0.9 % SODIUM CHLORIDE 100 ML IV SCH ×4 (03:50→21:49)
--- NOTE | 2018-10-04 06:16 | Progress Note ---
Date of Service October 04, 2018 Assessment & Plan (1) Acute cholecystitis: encourage ambulation, adv diet, cont atbx cont IV fluid- check labs Subjective afeb, vitals stable- good uo some pain Physical Exam 2 Vital Signs (Past 24 Hours): Last Vital Signs Temp 36.8 C 10/04/18 02:50 Pulse 94 H 10/04/18 02:50 Resp 16 10/04/18 02:50 BP 99/63 L 10/04/18 02:50 Pulse Ox 95 10/04/18 02:50 mild distention, has bowel sounds Dr 20cc - serosang
[2018-10-04 06:51] LABS: Hematocrit (blood only) 38.6 % (37-47); Hemoglobin 13.1 g/dL (12.0-16.0); Immature Granulocytes # (auto) 0.01 K/uL (0.00-0.02); Immature Granulocytes % (auto) 0.1 %; Lymphocytes # (auto) 0.89 K/uL (1.2-3.4); Lymphocytes % (auto) 11.7 %; Mean Corpuscular Hgb Conc 33.9 g/dL (32-36); Mean Corpuscular Volume 90.8 fL (80-100); Mean Platelet Volume 10.3 fL (7.4-10.4); Monocytes % (auto) 3.9 %; Neutrophils # (auto) 6.41 K/uL (1.4-6.5); Neutrophils % (auto) 84.3 %; Platelet Count 273 K/uL (130-400); RDW Coefficient of Variation 12.9 % (11.5-14.5); RDW Standard Deviation 42.7 fL (36.4-46.3); Red Blood Count 4.25 M/uL (4.2-5.4); White Blood Count 7.61 K/uL (4.8-10.8)
[2018-10-04 07:07] LABS: Partial Thromboplastin Ratio 0.9; Partial Thromboplastin Time 24.5 Seconds (21.0-31.0)
[2018-10-04 07:24] LABS: Albumin Level 3.5 gm/dl (3.4-5.0); BUN Creatinine Ratio 12.8 (10-20); Bilirubin Direct 0.2 mg/dl (0-0.2); Calcium 8.5 mg/dl (8.5-10.1); Creatinine Clr Calc Pharmacy 78.4 ml/min; Est GFR (African American) 88.2; Est GFR (Non-African American) 76.1
[2018-10-04 07:26] LABS: Albumin Globulin Ratio 1.1 (0.9-2); Bilirubin,Total 0.7 mg/dl (0.2-1); Globulin 3.3 gm/dl (2.5-4.0); Phosphorus 2.8 mg/dl (2.5-4.9); Total Protein 6.8 gm/dl (6.4-8.2)
[2018-10-04] MEDS: HEPARIN SOD 5,000 UNIT/0.5 ML VIAL SQ SCH ×2 (08:48→20:26)
[2018-10-04] MEDS: DOCUSATE SODIUM/SENNA 50/8.6MG TAB PO SCH ×2 (08:49→20:25)
--- NOTE | 2018-10-04 09:08 | Anesthesiology Progress Note ---
Date of Service October 04, 2018 Anesthesia Post Procedure Vital Signs Vital Signs: Temp Pulse Pulse Pulse Pulse Resp BP 10/04/18 07:21 36.4 C L 70 18 10/04/18 02:50 36.8 C 94 H 16 10/03/18 22:57 36.5 C 84 16 10/03/18 21:20 36.4 C L 86 18 10/03/18 19:50 36.6 C 86 18 10/03/18 18:50 36.8 C 92 H 19 10/03/18 18:40 36.2 C L 85 20 10/03/18 18:30 86 12 10/03/18 18:20 36.8 C 87 18 10/03/18 18:10 91 H 16 10/03/18 18:00 84 15 10/03/18 17:50 36.8 C 94 H 15 10/03/18 16:07 36.6 C 85 18 10/03/18 15:53 20 10/03/18 15:45 81 20 10/03/18 14:28 87 16 10/03/18 12:35 36.5 C 85 18 132/71 BP Pulse Ox 10/04/18 07:21 102/68 99 10/04/18 02:50 99/63 L 95 10/03/18 22:57 109/71 97 10/03/18 21:20 100/66 95 10/03/18 19:50 110/70 94 10/03/18 18:50 108/70 95 10/03/18 18:40 130/77 98 10/03/18 18:30 116/81 99 10/03/18 18:20 106/68 96 10/03/18 18:10 133/67 100 10/03/18 18:00 124/74 100 10/03/18 17:50 95/75 L 100 10/03/18 16:07 140/93 95 10/03/18 15:53 100 10/03/18 15:45 130/81 100 10/03/18 14:28 114/69 97 10/03/18 12:35 99 Pain Intensity Abdomen: Pain Intensity: 8 Notes Mental Status: alert / awake / arousable Patient Amnestic to Procedure: Yes Nausea / Vomiting: adequately controlled Pain: adequately controlled Airway Patency, RR, SpO2: stable & adequate BP & HR: stable & adequate Hydration State: stable & adequate Anesthetic Complications: no major complications apparent Notes: POD#1 s/p lap eyal. Awake, doing well. Has been ambulating and tolerating PO without problems. VSS
[2018-10-04] MEDS: SODIUM CHLORIDE 0.9% 1000ML 1,000 ML IV SCH (15:47)
[2018-10-04] MEDS ORDERED: ACETAMINOPHEN 325 MG TAB PO PRN (17:25)
[2018-10-04] MEDS: AMITRIPTYLINE HCL 10 MG TAB PO SCH (20:25)
[2018-10-05] MEDS: AMPICILLIN/SULBACTAM SOD 1,500 MG in 0.9 % SODIUM CHLORIDE 100 ML IV SCH ×4 (04:27→22:03)
[2018-10-05 06:17] LABS: Basophils # (auto) 0.01 K/uL (0-0.2); Basophils % (auto) 0.2 %; Eosinophils # (auto) 0.07 K/uL (0-0.5); Eosinophils % (auto) 1.5 %; Hematocrit (blood only) 34.4 % (37-47); Hemoglobin 11.6 g/dL (12.0-16.0); Lymphocytes # (auto) 1.96 K/uL (1.2-3.4); Lymphocytes % (auto) 41.4 %; Mean Corpuscular Hgb Conc 33.7 g/dL (32-36); Mean Corpuscular Volume 92.5 fL (80-100); Mean Platelet Volume 10.1 fL (7.4-10.4); Monocytes # (auto) 0.32 K/uL (0.11-0.59); Monocytes % (auto) 6.8 %; Neutrophils # (auto) 2.38 K/uL (1.4-6.5); Neutrophils % (auto) 50.1 %; Platelet Count 207 K/uL (130-400); RDW Coefficient of Variation 13.6 % (11.5-14.5); RDW Standard Deviation 45.6 fL (36.4-46.3); Red Blood Count 3.72 M/uL (4.2-5.4); White Blood Count 4.74 K/uL (4.8-10.8)
[2018-10-05] MEDS: HYDROCODONE/ACETAMOPHEN 5/325MG TAB PO PRN (06:32)
[2018-10-05 06:43] LABS: Alanine Aminotransferase 125 U/L (12-78); Albumin Level 3.2 gm/dl (3.4-5.0); Aspartate Aminotransferase 53 U/L (15-37); BUN Creatinine Ratio 16.4 (10-20); Blood Urea Nitrogen 15 mg/dl (7-18); Calcium 8.1 mg/dl (8.5-10.1); Carbon Dioxide 25 mmol/L (21-32); Chloride 110 mmol/L (98-107); Creatinine Clr Calc Pharmacy 76.7 ml/min; Est GFR (African American) 85.8; Glucose 95 mg/dl (70-99); Magnesium 2.2 mg/dl (1.8-2.4); Potassium 3.8 mmol/L (3.5-5.1); Sodium 140 mmol/L (136-145)
[2018-10-05 06:45] LABS: Albumin Globulin Ratio 1.1 (0.9-2); Alkaline Phosphatase 61 U/L (45-117); Bilirubin,Total 0.3 mg/dl (0.2-1); Globulin 2.8 gm/dl (2.5-4.0); Phosphorus 2.7 mg/dl (2.5-4.9)
--- NOTE | 2018-10-05 07:17 | Progress Note ---
Date of Service October 05, 2018 Assessment & Plan (1) Cholecystitis: cont IV atbx, add MOM, Sen S possible d/c tomorrow Subjective improved from yesterday no bm Physical Exam 2 Vital Signs (Past 24 Hours): Last Vital Signs Temp 36.9 C 10/04/18 23:40 Pulse 85 10/04/18 23:40 Resp 16 10/04/18 23:40 BP 112/67 10/04/18 23:40 Pulse Ox 97 10/04/18 23:40 dr- serous, some bowel sounds
[2018-10-05 07:38] LABS: Bilirubin Direct < 0.1 mg/dl (0-0.2)
[2018-10-05] MEDS ORDERED: DOCUSATE SODIUM/SENNA 50/8.6MG TAB PO SCH (09:00)
[2018-10-05] MEDS: HEPARIN SOD 5,000 UNIT/0.5 ML VIAL SQ SCH ×2 (09:14→20:11)
[2018-10-05] MEDS: MAGNESIUM HYDROXIDE SUSP 30 ML UDC PO SCH ×2 (09:15→20:19)
[2018-10-05] MEDS: DOCUSATE SODIUM/SENNA 50/8.6MG TAB PO SCH ×2 (09:15→20:10)
[2018-10-05] MEDS: AMITRIPTYLINE HCL 10 MG TAB PO SCH (20:11)
[2018-10-06] MEDS: AMPICILLIN/SULBACTAM SOD 1,500 MG in 0.9 % SODIUM CHLORIDE 100 ML IV SCH (03:10)
[2018-10-06] MEDS: HEPARIN SOD 5,000 UNIT/0.5 ML VIAL SQ SCH ×2 (07:40→19:43)
[2018-10-06] MEDS: MAGNESIUM HYDROXIDE SUSP 30 ML UDC PO SCH ×2 (08:16→19:48)
[2018-10-06] MEDS: DOCUSATE SODIUM/SENNA 50/8.6MG TAB PO SCH ×2 (08:17→19:47)
--- NOTE | 2018-10-06 08:28 | Anesthesiology Progress Note ---
Date of Service October 06, 2018 Anesthesia Post Procedure Vital Signs Vital Signs: Temp Pulse Resp BP Pulse Ox 10/06/18 07:26 36.4 C L 69 16 123/82 98 10/05/18 23:16 36.8 C 83 14 122/78 97 10/05/18 14:53 36.9 C 81 18 126/85 98 Notes Mental Status: alert / awake / arousable and participated in evaluation Patient Amnestic to Procedure: Yes Nausea / Vomiting: adequately controlled Pain: adequately controlled Airway Patency, RR, SpO2: stable & adequate BP & HR: stable & adequate Hydration State: stable & adequate Anesthetic Complications: no major complications apparent and Pt Satisfied with anesthetic care
--- NOTE | 2018-10-06 10:30 | Progress Note ---
Date of Service October 06, 2018 Assessment & Plan (1) Acute cholecystitis due to biliary calculus: GI function improving , cont IV atbx possible d/c tomorrow- monitor po intake Subjective positive bm vitals stable Physical Exam 2 Vital Signs (Past 24 Hours): Last Vital Signs Temp 36.4 C L 10/06/18 07:26 Pulse 69 10/06/18 07:26 Resp 16 10/06/18 07:26 BP 123/82 10/06/18 07:26 Pulse Ox 98 10/06/18 07:26 abd- less distended , tender
[2018-10-06] MEDS: AMOXICILLIN/CLAVULANATE 500 MG TAB PO SCH ×2 (12:21→16:00)
[2018-10-06] MEDS: IBUPROFEN 600 MG TAB PO PRN (16:01)
[2018-10-06] MEDS: AMITRIPTYLINE HCL 10 MG TAB PO SCH (19:47)
[2018-10-07] MEDS: MAGNESIUM HYDROXIDE SUSP 30 ML UDC PO SCH (08:46)
[2018-10-07] MEDS: DOCUSATE SODIUM/SENNA 50/8.6MG TAB PO SCH (08:48)
[2018-10-07] MEDS: AMOXICILLIN/CLAVULANATE 500 MG TAB PO SCH ×2 (08:50→12:27)
[2018-10-07] MEDS: HEPARIN SOD 5,000 UNIT/0.5 ML VIAL SQ SCH (08:54)
[2018-10-07] MEDS: IBUPROFEN 600 MG TAB PO PRN (09:27)
--- NOTE | 2018-10-09 11:09 | Discharge Summary ---
PRINCIPAL DIAGNOSIS: Acute necrotizing cholecystitis. PROCEDURES: The patient underwent laparoscopic cholecystectomy with drain placement. HOSPITAL COURSE: The patient was brought into the hospital through the Emergency Room. She was diagnosed with acute cholecystitis, taken to the operating room, where she underwent laparoscopic cholecystectomy. Her gallbladder was extremely adherent showing severe chronic disease. Drain was placed. Postoperatively, she did relatively well, although was somewhat slow to regain her GI function. She did progress in both diet and activity without complication and was felt stable for discharge on 10/07/2018 to home with the drain, to be seen in the surgical clinic within 1 week.
== END 2018-10-07 13:45 | disposition home or self-care (01) | DRG 418 ==
LOC: ED 12:17 → ASU 15:53 → 3N 18:02